=== PATIENT | male | born 1970 | race Caucasian/White ===

== ENCOUNTER 2017-09-02 10:45 | Emergency (ER) | payer BC ==
[~2017-09-02] VITALS: Ht 185.4 cm; Wt 118.8 kg
[2017-09-02 10:56] VITALS: BP 140/94
== END 2017-09-02 13:47 | disposition left against medical advice (07) ==
LOC: ER 10:45
DX: M25.562 Pain in left knee (principal); Z53.21 Procedure and treatment not carried out due to patient leaving prior to being seen by health care provider; W01.0XXA Fall on same level from slipping, tripping and stumbling without subsequent striking against object, initial encounter; Y93.89 Activity, other specified; Y99.8 Other external cause status; Y92.89 Other specified places as the place of occurrence of the external cause
CPT/HCPCS: 73562